=== PATIENT | female | born 1985 | race Caucasian/White ===

== ENCOUNTER 2018-12-31 11:30 | Inpatient (IN) | payer MEDICAID, SELFPAY ==
[2018-12-31 11:43] VITALS: BP 113/64; PULSE 66; RESP 16; TEMP 36.6; O2SAT 99; BMI 22.8
--- NOTE | 2018-12-31 11:54 | HP.PCM_ITS ---
Problem List (1) Heroin use Status: Acute (2) Acute opioid withdrawal Status: Chronic (3) Tobacco dependence Status: Chronic History of Present Illness Date of Admission: 12/31/18 Chief Complaint: Generalized body aches The patient is a 33 year old F history of IV heroin use presenting with generalized body aches. Patient also complains of abdominal cramps as well as restless legs. Last use was a day prior to coming in. Patient reports recent detox at [facility] 2 weeks prior to her admission to [facility]. Patient assessment on admission was consistent with acute opiate withdrawal admitted to regular nursing floor for medical stabilization Past Medical History Past Medical History (Chronic Problems): Chronic Problems Acute opioid withdrawal (Chronic) Tobacco dependence (Chronic) Allergies No Known Allergies Allergy (Verified 12/31/18 11:45) Home Medications: Ambulatory Orders Medication Instructions Recorded NK 12/31/18 - *Family History Maternal History Items: Heart Disease Review of Systems Constitutional: Reports: Weight Change. Denies: Anorexia, Chills, Fever HEENT: Reports: Nasal Congestion. Denies: Head Aches, Sinus Congestion Cardiovascular: Denies: Chest Pain, Orthopnea, Palpitations, Paroxysmal Noc. Dyspnea Respiratory: Denies: Cough, Shortness of breath at rest, Shortness of breath upon exertion, Sputum production Gastrointestinal: Reports: Abdominal Pain. Denies: Hematemesis, Hematochezia Genitourinary: Denies: Dysuria, Frequency, Hematuria, Urgency Musculoskeletal: Reports: Leg Pain, Muscle pain. Denies: Joint Pain, Joint T enderness Skin: Denies: Rash Neurological: Denies: Focal weakness, Numbness, Tingling Psychiatric: Reports: Anxiety. Denies: Homicidal Ideations, Suicidal Ideations Hematologic/ Lymphatic: Denies: Easy Bruising, Easy Bleeding VTE Information - Inpt Only VTE Present on Admission: No VTE Mechan Device Prophylaxis: None Reason prophylaxis not ordered:: Treatment Not Indicated Patient Problems: Active and Suspected Problems Heroin use (Acute) Objective: GENERAL: cooperative HEENT: Left periorbital bruising EYES; Anicteric, Normal Conjunctiva NECK; supple, normal thyroid, RESPIRATORY: Diminished to auscultation bilaterally, CARDIOVASCULAR: Regular S1 S2, GI: soft, non-tender, normoactive bowel sounds, : No Renal angle tenderness; EXTREMITIES: No edema, no clubbing, no cyanosis. MUSCULOSKELETAL: No Joint Tenderness; NEURO: Awake; no lateralizing signs. SKIN: No Rash PSYCH; Normal affect Assessment/Plan All Active Problems Heroin use (Acute) Patient is a 33-year-old lady with history of heroin dependence admitted with acute opiate withdrawal 1. Acute opiate withdrawal admitted to the regular nursing floor for medical stabilization using Subutex 2. Heroin dependence counseled on cessation 3. Tobacco dependence counseled on cessation, offered nicotine patch for tobacco cravings 4. DVT prophylaxis low risk did encourage early ambulation Code Visit Inpatient E&M: 22635 Init Hosp L2
[2018-12-31 12:05] VITALS: BMI 22.9
[2018-12-31 13:03] LABS: Color, Urine Yellow (Yellow); Glucose, Dipstick Normal (Normal); Ketone-Dipstick Negative (Negative); Leukocyte Esterase-Dipstick Negative /ul (Negative); Nitrite-Dipstick Negative (Negative); Occult Blood-Urine Negative /ul (Negative); Protein-Dipstick Negative (Negative); Specific Gravity, Urine 1.025 (1.002-1.030); Urine Bilirubin Dipstick Negative (Negative); Urine Clarity Clear (Clear); Urine Urobilinogen Normal (Normal)
[2018-12-31 13:08] LABS: Bacteria 1+ /hpf (None Seen); Calcium Oxalate Crystals Ur 2+ /hpf (<or=2+); Mucous, Urine 3+ /hpf (<or=2+); Red Blood Cells-Urine 0-5 SEEN /hpf (0-5); Squamous Epithelial Cells - UA 0-5 SEEN /hpf (5-10); White Blood Cells 0-5 SEEN /hpf (0-5)
[2018-12-31 13:09] LABS: Internal QC Validated? YES +Cl - CLEAR BKGD; Pregnancy, Urine Negative Negative
[2018-12-31 13:18] LABS: Amphetamine Urine VISTA POSITIVE (<1000 ng/mL); Barbiturate Urine VISTA NEGATIVE (< 200 ng/mL); Benzodiazepine Urine VISTA POSITIVE (< 200 ng/mL); Cocaine Urine VISTA POSITIVE (< 300 ng/mL); Ecstacy Urine VISTA NEGATIVE (< 500 ng/mL); Methadone Urine VISTA NEGATIVE (< 300 ng/mL); PCP Urine VISTA NEGATIVE (< 25 ng/mL); THC Urine VISTA NEGATIVE (< 50 ng/mL); Vista UDS pH Range 5
[2018-12-31] MEDS: chlordiazePOXIDE 25 MG Capsule PO ×3 (13:26→20:59)
[2018-12-31] MEDS: Methocarbamol 750 MG Tablet PO (13:26)
[2018-12-31] MEDS: cloNIDine HCl 0.1 MG Tablet PO (13:26)
[2018-12-31] MEDS: Dicyclomine 10 MG Capsule 20 MG PO ×2 (13:26→21:18)
[2018-12-31] MEDS: Buprenorphine HCl 2 MG TAB.SUBL SL ×2 (13:26→20:59)
[2018-12-31] MEDS: Ondansetron ODT 4 MG Tablet PO (13:26)
[2018-12-31 13:51] VITALS: BP 113/64; PULSE 66; RESP 18; TEMP 36.6
[2018-12-31 15:54] VITALS: BP 108/60; PULSE 72; RESP 18; TEMP 36.8
[2018-12-31 20:54] VITALS: BP 98/60; PULSE 71; RESP 14; TEMP 36.6; O2SAT 95
[2018-12-31] MEDS: traZODone 50 MG Tablet PO (21:00)
[2019-01-01] VITALS (7 sets, daily range): BP systolic 85–109; BP diastolic 40–66; PULSE 60–76; RESP 14–16; TEMP 36.5–37.4; O2SAT 97
[2019-01-01] MEDS: chlordiazePOXIDE 25 MG Capsule PO ×3 (00:59→08:07)
--- NOTE | 2019-01-01 01:03 | NURSING ---
explained to pt that lab had called stating she had refused blood draws earlier and inquired if pt would be willing to let them draw in am. pt states i mean i don't have a choice explained to pt that pt does have choice. pt verbalizes understanding that lab will be coming to draw in am if she is ok with it.
[2019-01-01] MEDS: Buprenorphine HCl 2 MG TAB.SUBL SL ×3 (05:03→20:59)
--- NOTE | 2019-01-01 07:31 | PN_ITS ---
Patient Problems: Active and Suspected Problems Heroin use (Acute) Subjective: She has seen complains of extreme anxiety also complains of abdominal cramps as well as leg pain. Objective: GENERAL: ill-looking HEENT: Left periorbital bruising EYES; Anicteric, Normal Conjunctiva NECK; supple, normal thyroid, RESPIRATORY: Diminished to auscultation bilaterally, CARDIOVASCULAR: Regular S1 S2, GI: soft, non-tender, normoactive bowel sounds, : No Renal angle tenderness; EXTREMITIES: No edema, no clubbing, no cyanosis. MUSCULOSKELETAL: No Joint Tenderness; NEURO: Awake; no lateralizing signs. SKIN: No Rash PSYCH; flat affect Vitals/I&O's: Vital Signs Temp Pulse Resp BP Pulse Ox 97.7 F L 62 14 100/63 95 01/01/19 05:06 01/01/19 05:06 01/01/19 05:06 01/01/19 05:06 12/31/18 20:54 Oxygen Delivery Method Room Air Weight: 62.5 kg Body Mass Index (BMI) 22.8 Intake and Output for Last 24 Hours 12/30/18 12/31/18 01/01/19 23:59 23:59 23:59 Intake Total 720 / 720 Balance 720 / 720 Laboratory Results 12/31/18 12:10: Urine Opiates Screen NEGATIVE, Urine Methadone Screen NEGATIVE, Ur Barbiturates Screen NEGATIVE, Ur Phencyclidine Scrn NEGATIVE, Ur Amphetamines Screen POSITIVE H, U Methamphetamin-MDMA NEGATIVE, U Benzodiazepines Scrn POSITIVE H, Urine Cocaine Screen POSITIVE H, U Cannabinoids Screen NEGATIVE, Ur Drug Screen Comment 12/31/18 12:10: Urine Color Yellow, Urine Clarity Clear, Urine pH 6.0, Ur Specific [place] 1.025, Urine Protein Negative, Urine Glucose (UA) Normal, Urine Ketones Negative, Urine Occult Blood Negative, Urine Nitrite Negative, Urine Bilirubin Negative, Urine Urobilinogen Normal, Ur Leukocyte Esterase Negative, Urine RBC 0-5 SEEN, Urine WBC 0-5 SEEN, Ur Squamous Epith Cells 0-5 SEEN, Calcium Oxalate Crystal 2+, Urine Bacteria 1+, Urine Mucus 3+, Urine Test Negative 12/31/18 16:02: WBC Cancelled, Corrected WBC Cancelled, RBC Cancelled, Hgb C ancelled, Hct Cancelled, MCV Cancelled, MCH Cancelled, MCHC Cancelled, RDW Cancelled, RDW Differential Cancelled, Plt Count Cancelled, MPV Cancelled, Immature Gran % (Auto) Cancelled, Neut % (Auto) Cancelled, Lymph % (Auto) Cancelled, [place] % (Auto) Cancelled, Eos % (Auto) Cancelled, Baso % (Auto) Cancelled, Absolute Neuts (auto) Cancelled, Absolute Lymphs (auto) Cancelled, Total Counted Cancelled, Neutrophils % (Manual) Cancelled, Band Neutrophils % Cancelled, Lymphocytes % (Manual) Cancelled, Monocytes % (Manual) Cancelled, Eosinophils % (Manual) Cancelled, Basophils % (Manual) Cancelled, Metamyelocytes % Cancelled, Myelocytes % Cancelled, Promyelocytes % Cancelled, Blast Cells % Cancelled, Plasma Cell % (Manual) Cancelled, Other Cells % Cancelled, Nucleated RBCs/100 WBC Cancelled, Differential Comment Cancelled, Diff Path Review Cancelled, Hypersegmented Neuts Cancelled, Atypical Lymphocytes Cancelled, Reactive Lymphocytes Cancelled, Smudge Cells Cancelled, Toxic Granulation Cancelled, Dohle Bodies Cancelled, Amaya Rods Cancelled, Platelet Estimate Cancelled, Plt Morphology Comment Cancelled, RBC Morphology Cancelled, Polychromasia Cancelled, Hypochromasia Cancelled, Poikilocytosis Cancelled, Basophilic Stippling Cancelled, Anisocytosis Cancelled, Microcytosis Cancelled, Macrocytosis Cancelled, Spherocytes Cancelled, Sickle Cells Cancelled, Target Cells Cancelled, Tear Drop Cells Cancelled, Ovalocytes Cancelled, Stomatocytes Cancelled, [place] Bodies Cancelled, [place] Cells Cancelled, Bite Cells Cancelled, Acanthocytes (Spur) Cancelled, Rouleaux Cancelled, Schistocytes Cancelled 12/31/18 16:02: Sodium Cancelled, Potassium Cancelled, Chloride Cancelled, Carbon Dioxide Cancelled, Anion Gap Cancelled, BUN Cancelled, Creatinine Cancelled, Estim Creat Clear Calc Cancelled, Est GFR (MDRD) Af Amer Cancelled, Est GFR (MDRD) Non-Af Cancelled, BUN/Creatinine Ratio Cancelled, Glucose Cancelled, Calcium Cancelled, Total Bilirubin Cancelled, AST Cancelled, ALT Cancelled, Alkaline Phosphatase Cancelled, Total Protein Cancelled, Albumin Cancelled, Globulin Cancelled, Albumin/Globulin Ratio Cancelled, Amylase Cancelled, Lipase Cancelled 12/31/18 16:02: Ethyl Alcohol 10.0 Current Medications Acetaminophen (Tylenol) 500 mg PO Q4H PRN PRN PRN Reason: Temp > 100.4 F Al Hydroxide/Mg Hydroxide (Mylanta Ii) 30 ml PO Q6H PRN PRN PRN Reason: dyspesia Bisacodyl (Dulcolax) 10 mg RECTAL DAILY PRN PRN Reason: Constipation Buprenorphine HCl (Buprenorphine Hcl) 4 mg SL Q8H ISAIAS; Taper Stop: 01/03/19 15:59 Last Admin: 01/01/19 05:03 Dose: 4 mg Chlordiazepoxide (Librium) 25 mg PO Q4H ISAIAS Stop: 01/01/19 08:01 Last Admin: 01/01/19 05:03 Dose: 25 mg Chlordiazepoxide (Librium) 25 mg PO Q6H PRN PRN PRN Reason: Moderate-Severe Anxiety Clonidine (Catapres) 0.1 mg PO Q2H PRN PRN PRN Reason: Hot/Cold Sweats or Anxiety Last Admin: 12/31/18 13:26 Dose: 0.1 mg Dicyclomine HCl (Bentyl) 20 mg PO Q6H PRN PRN PRN Reason: Abdomnial Discomfort Last Admin: 12/31/18 21:18 Dose: 20 mg Hydroxyzine HCl (Vistaril Vial) 50 mg IM Q6H PRN PRN PRN Reason: Breakthrough Anxiety Hydroxyzine Pamoate (Vistaril Pamoate Capsule) 50 mg PO Q6H PRN PRN PRN Reason: Mild Anxiety Ibuprofen (Motrin) 600 mg PO Q8H PRN PRN PRN Reason: Mild-Moderate Pain (1-5/10) Loperamide HCl (Imodium) 2 - 4 mg PO UD PRN PRN Reason: LOOSE STOOLS Methocarbamol (Methocarbamol) 750 mg PO Q6H PRN PRN PRN Reason: Muscle Aches Last Admin: 12/31/18 13:26 Dose: 750 mg Nicotine (Nicoderm Cq (Pbkc)) 21 mg TRANSDERM. DAILY [facility] Last Admin: 12/31/18 13:26 Dose: 21 mg Nutritional Formula (Lactose Free) (Ensure Enlive) 120 ml PO 4X/DAY [facility] Last Admin: 12/31/18 21:00 Dose: 120 ml Ondansetron HCl (Zofran Odt) 4 mg PO Q6H PRN PRN PRN Reason: NAUSEA Last Admin: 12/31/18 13:26 Dose: 4 mg Pramipexole Dihydrochloride (Mirapex) 0.25 mg PO Q12H PRN PRN PRN Reason: Restless Legs Senna (Senokot) 1 tablet PO QHS PRN PRN Reason: Constipation Trazodone HCl (Desyrel) 50 mg PO QHS ISAIAS Last Admin: 12/31/18 21:00 Dose: 50 mg Medical Necessity - Tobacco Use Smoking Status: Current every day smoker Tobacco Use: Cigarettes Assessment/Plan All Active Problems Heroin use (Acute) Patient is a 33-year-old lady with history of heroin dependence admitted with acute opiate withdrawal 1. Acute opiate withdrawal admitted to the regular nursing floor for medical stabilization using Subutex 2. Heroin dependence counseled on cessation 3. Tobacco dependence counseled on cessation, offered nicotine patch for tobacco cravings 4. Polysubstance abuse patient urine tox screen was positive for methamphetamines, cocaine benzos in addition to opiate, counseled on cessation 5. Anxiety disorder 6. DVT prophylaxis low risk did encourage early ambulation Code Visit Inpatient E&M: 47119 Subs Hosp L3
--- NOTE | 2019-01-01 08:45 | NEWVISION ---
Patient has D/C plan to attend [facility] for counseling and MAT program appointment at 4pm. Transportation to be provided by patient's sister Leann Pa. [phone].
--- NOTE | 2019-01-01 09:24 | NURSING ---
LOW BP REPORTED TO . NO NEW ORDERS RECEIVED.
[2019-01-01] MEDS: Methocarbamol 750 MG Tablet PO (09:39)
[2019-01-01] MEDS: Pramipexole Di-HCl 0.25 MG Tablet PO (18:08)
[2019-01-01] MEDS: traZODone 50 MG Tablet PO (20:59)
[2019-01-02 04:12] VITALS: BP 103/50; PULSE 68; RESP 16; TEMP 36.7; O2SAT 98
[2019-01-02] MEDS: Buprenorphine HCl 2 MG TAB.SUBL SL ×2 (04:16→16:36)
--- NOTE | 2019-01-02 07:22 | PCM.PN.HOSP ---
Patient Problems: Active and Suspected Problems Heroin use (Acute) Subjective: She has seen complains of feeling tired. Her anxiety is improving Objective: GENERAL: ill-looking HEENT: Left periorbital bruising EYES; Anicteric, Normal Conjunctiva NECK; supple, normal thyroid, RESPIRATORY: Diminished to auscultation bilaterally, CARDIOVASCULAR: Regular S1 S2, GI: soft, non-tender, normoactive bowel sounds, : No Renal angle tenderness; EXTREMITIES: No edema, no clubbing, no cyanosis. MUSCULOSKELETAL: No Joint Tenderness; NEURO: Awake; no lateralizing signs. SKIN: No Rash PSYCH; flat affect Vitals/I&O's: Vital Signs Temp Pulse Resp BP Pulse Ox 98.1 F 68 16 103/50 L 98 01/02/19 04:12 01/02/19 04:12 01/02/19 04:12 01/02/19 04:12 01/02/19 04:12 Oxygen Delivery Method Room Air Weight: 62.5 kg Body Mass Index (BMI) 22.8 Intake and Output for Last 24 Hours 12/31/18 01/01/19 01/02/19 23:59 23:59 23:59 Intake Total 1600 / 1600 690 / 690 Balance 1600 / 1600 690 / 690 Current Medications Acetaminophen (Tylenol) 500 mg PO Q4H PRN PRN PRN Reason: Temp > 100.4 F Al Hydroxide/Mg Hydroxide (Mylanta Ii) 30 ml PO Q6H PRN PRN PRN Reason: dyspesia Bisacodyl (Dulcolax) 10 mg RECTAL DAILY PRN PRN Reason: Constipation Buprenorphine HCl (Buprenorphine Hcl) 2 mg SL Q12H ISAIAS; Taper Stop: 01/03/19 15:59 Last Admin: 01/02/19 04:16 Dose: 2 mg Chlordiazepoxide (Librium) 25 mg PO Q6H PRN PRN PRN Reason: Moderate-Severe Anxiety Clonidine (Catapres) 0.1 mg PO Q2H PRN PRN PRN Reason: Hot/Cold Sweats or Anxiety Last Admin: 12/31/18 13:26 Dose: 0.1 mg Dicyclomine HCl (Bentyl) 20 mg PO Q6H PRN PRN PRN Reason: Abdomnial Discomfort Last Admin: 12/31/18 21:18 Dose: 20 mg Hydroxyzine HCl (Vistaril Vial) 50 mg IM Q6H PRN PRN PRN Reason: Breakthrough Anxiety Hydroxyzine Pamoate (Vistaril Pamoate Capsule) 50 mg PO Q6H PRN PRN PRN Reason: Mild Anxiety Ibuprofen (Motrin) 600 mg PO Q8H PRN PRN PRN Reason: Mild-Moderate Pain (1-5/10) Loperamide HCl (Imodium) 2 - 4 mg PO UD PRN PRN Reason: LOOSE STOOLS Methocarbamol (Methocarbamol) 750 mg PO Q6H PRN PRN PRN Reason: Muscle Aches Last Admin: 01/01/19 09:39 Dose: 750 mg Nicotine (Nicoderm Cq (Pbkc)) 21 mg TRANSDERM. DAILY [facility] Last Admin: 01/01/19 09:39 Dose: 21 mg Nutritional Formula (Lactose Free) (Ensure Enlive) 120 ml PO 4X/DAY [facility] Last Admin: 01/01/19 20:59 Dose: 120 ml Ondansetron HCl (Zofran Odt) 4 mg PO Q6H PRN PRN PRN Reason: NAUSEA Last Admin: 12/31/18 13:26 Dose: 4 mg Pramipexole Dihydrochloride (Mirapex) 0.25 mg PO Q12H PRN PRN PRN Reason: Restless Legs Last Admin: 01/01/19 18:08 Dose: 0.25 mg Senna (Senokot) 1 tablet PO QHS PRN PRN Reason: Constipation Trazodone HCl (Desyrel) 50 mg PO QHS [facility] Last Admin: 01/01/19 20:59 Dose: 50 mg Medical Necessity - Tobacco Use Smoking Status: Current every day smoker Tobacco Use: Cigarettes Assessment/Plan All Active Problems Heroin use (Acute) Patient is a 33-year-old lady with history of heroin dependence admitted with acute opiate withdrawal 1. Acute opiate withdrawal admitted to the regular nursing floor for medical stabilization using Subutex the patient has tolerated the protocol well so far 2. Heroin dependence counseled on cessation 3. Tobacco dependence counseled on cessation, offered nicotine patch for tobacco cravings 4. Polysubstance abuse patient urine tox screen was positive for methamphetamines, cocaine benzos in addition to opiate, counseled on cessation 5. Anxiety disorder 6. DVT prophylaxis low risk did encourage early ambulation Code Visit Inpatient E&M: 62460 Subs Hosp L2
--- NOTE | 2019-01-02 07:25 | PN_ITS ---
Patient Problems: Active and Suspected Problems Heroin use (Acute) Subjective: She has seen complains of feeling tired. Her anxiety is improving Objective: GENERAL: ill-looking HEENT: Left periorbital bruising EYES; Anicteric, Normal Conjunctiva NECK; supple, normal thyroid, RESPIRATORY: Diminished to auscultation bilaterally, CARDIOVASCULAR: Regular S1 S2, GI: soft, non-tender, normoactive bowel sounds, : No Renal angle tenderness; EXTREMITIES: No edema, no clubbing, no cyanosis. MUSCULOSKELETAL: No Joint Tenderness; NEURO: Awake; no lateralizing signs. SKIN: No Rash PSYCH; flat affect Vitals/I&O's: Vital Signs Temp Pulse Resp BP Pulse Ox 98.1 F 68 16 103/50 L 98 01/02/19 04:12 01/02/19 04:12 01/02/19 04:12 01/02/19 04:12 01/02/19 04:12 Oxygen Delivery Method Room Air Weight: 62.5 kg Body Mass Index (BMI) 22.8 Intake and Output for Last 24 Hours 12/31/18 01/01/19 01/02/19 23:59 23:59 23:59 Intake Total 1600 / 1600 690 / 690 Balance 1600 / 1600 690 / 690 Current Medications Acetaminophen (Tylenol) 500 mg PO Q4H PRN PRN PRN Reason: Temp > 100.4 F Al Hydroxide/Mg Hydroxide (Mylanta Ii) 30 ml PO Q6H PRN PRN PRN Reason: dyspesia Bisacodyl (Dulcolax) 10 mg RECTAL DAILY PRN PRN Reason: Constipation Buprenorphine HCl (Buprenorphine Hcl) 2 mg SL Q12H ISAIAS; Taper Stop: 01/03/19 15:59 Last Admin: 01/02/19 04:16 Dose: 2 mg Chlordiazepoxide (Librium) 25 mg PO Q6H PRN PRN PRN Reason: Moderate-Severe Anxiety Clonidine (Catapres) 0.1 mg PO Q2H PRN PRN PRN Reason: Hot/Cold Sweats or Anxiety Last Admin: 12/31/18 13:26 Dose: 0.1 mg Dicyclomine HCl (Bentyl) 20 mg PO Q6H PRN PRN PRN Reason: Abdomnial Discomfort Last Admin: 12/31/18 21:18 Dose: 20 mg Hydroxyzine HCl (Vistaril Vial) 50 mg IM Q6H PRN PRN PRN Reason: Breakthrough Anxiety Hydroxyzine Pamoate (Vistaril Pamoate Capsule) 50 mg PO Q6H PRN PRN PRN Reason: Mild Anxiety Ibuprofen (Motrin) 600 mg PO Q8H PRN PRN PRN Reason: Mild-Moderate Pain (1-5/10) Loperamide HCl (Imodium) 2 - 4 mg PO UD PRN PRN Reason: LOOSE STOOLS Methocarbamol (Methocarbamol) 750 mg PO Q6H PRN PRN PRN Reason: Muscle Aches Last Admin: 01/01/19 09:39 Dose: 750 mg Nicotine (Nicoderm Cq (Pbkc)) 21 mg TRANSDERM. DAILY [facility] Last Admin: 01/01/19 09:39 Dose: 21 mg Nutritional Formula (Lactose Free) (Ensure Enlive) 120 ml PO 4X/DAY [facility] Last Admin: 01/01/19 20:59 Dose: 120 ml Ondansetron HCl (Zofran Odt) 4 mg PO Q6H PRN PRN PRN Reason: NAUSEA Last Admin: 12/31/18 13:26 Dose: 4 mg Pramipexole Dihydrochloride (Mirapex) 0.25 mg PO Q12H PRN PRN PRN Reason: Restless Legs Last Admin: 01/01/19 18:08 Dose: 0.25 mg Senna (Senokot) 1 tablet PO QHS PRN PRN Reason: Constipation Trazodone HCl (Desyrel) 50 mg PO QHS [facility] Last Admin: 01/01/19 20:59 Dose: 50 mg Medical Necessity - Tobacco Use Smoking Status: Current every day smoker Tobacco Use: Cigarettes Assessment/Plan All Active Problems Heroin use (Acute) Patient is a 33-year-old lady with history of heroin dependence admitted with acute opiate withdrawal 1. Acute opiate withdrawal admitted to the regular nursing floor for medical stabilization using Subutex the patient has tolerated the protocol well so far 2. Heroin dependence counseled on cessation 3. Tobacco dependence counseled on cessation, offered nicotine patch for tobacco cravings 4. Polysubstance abuse patient urine tox screen was positive for methamphetamines, cocaine benzos in addition to opiate, counseled on cessation 5. Anxiety disorder 6. DVT prophylaxis low risk did encourage early ambulation Code Visit Inpatient E&M: 58918 Subs Hosp L2
[2019-01-02 10:06] VITALS: BP 103/61; PULSE 68; RESP 14; TEMP 36.6
[2019-01-02] MEDS: Pramipexole Di-HCl 0.25 MG Tablet PO (10:15)
[2019-01-02] MEDS: Methocarbamol 750 MG Tablet PO (10:15)
--- NOTE | 2019-01-02 12:51 | CHAPLAIN ---
Type of Pastoral Visit _x__ Initial Visit ___ Follow-up Visit ___ On-call Visit ___ General Patient Visit ___ Spiritual Assessment ___ Family Conference ___ Bereavement ___ Rapid Response ___ Code Blue ___ Other (describe below) Pastoral Care Referral From ___ Patient ___ Family ___ Nurse ___ Physician ___ Mechanical Technical Service Specialist ___ Rolling [employer] Operator Helper _x__ Other (describe below) Sacrament/Intervention ___ Active listening ___ Anointing ___ Christianity ___ Bereavement ___ Communion ___ Kristina exploration ___ ___ Life review ___ Prayer ___ Reconciliation ___ Sacrament of Sick ___ Supportive presence ___ Wedding _x__ Other (describe below) Pastoral Comments there was a referral placed for this patient; upon offer of support the pt declined it; no interventions
[2019-01-02 16:35] VITALS: BP 115/73; PULSE 72; RESP 14; TEMP 36.8
[2019-01-02 20:49] VITALS: BP 110/70; PULSE 74; RESP 16; TEMP 37
[2019-01-02] MEDS: traZODone 50 MG Tablet PO (21:02)
[2019-01-02] MEDS: hydrOXYzine PAM 25 MG Capsule 50 MG PO (21:02)
[2019-01-03 01:16] VITALS: BP 99/60; PULSE 70; RESP 16; TEMP 36.6
[2019-01-03] MEDS: Buprenorphine HCl 2 MG TAB.SUBL SL (04:06)
--- NOTE | 2019-01-03 07:57 | DCINST_ITS ---
- Discharge Diagnoses Current Active Problems: Current Active and Chronic Problems Heroin use (Acute) Acute opioid withdrawal (Chronic) Tobacco dependence (Chronic) You will use the following diet at home:: No restrictions Discharge Activity: Return to Normal Activity, May not drive while taking narcotic pain medications. Allergies/Adverse Reactions: Allergies No Known Allergies Allergy (Verified 12/31/18 11:45) Medications to take at Discharge NK 12/31/18 Primary Care Physician: Care Physician,No Primary [Primary Care Provider] - Please follow up with your Primary Care Physician in: in 5-7 days Test Results: Test results from this visit will be discussed in further detail at your follow- up appointment, if applicable. Proposed Discharge Date: 01/03/19
--- NOTE | 2019-01-03 07:57 | PCM.DC.SUM ---
Discharge Date and Diagnosis - Problem List Patient Problems: Active and Suspected Problems Heroin use (Acute) Date of Admission: 12/31/18 Date of Discharge: 01/03/19 - Primary Discharge Diagnosis Active and Suspected Problems Heroin use (Acute) - Secondary Discharge Diagnosis Chronic Problems Acute opioid withdrawal (Chronic) Tobacco dependence (Chronic) Hospital Course and Treatment Summary of Care Provided: Patient is a 33-year-old lady with history of heroin dependence admitted with acute opiate withdrawal 1. Acute opiate withdrawal admitted to the regular nursing floor for medical stabilization using Subutex the patient tolerated the protocol 2. Heroin dependence counseled on cessation 3. Tobacco dependence counseled on cessation, offered nicotine patch for tobacco cravings 4. Polysubstance abuse patient urine tox screen was positive for methamphetamines, cocaine benzos in addition to opiate, counseled on cessation 5. Anxiety disorder 6. DVT prophylaxis low risk did encourage early ambulation Patient Problems: Active and Suspected Problems Heroin use (Acute) Objective: HEENT: Left periorbital bruising EYES; Anicteric, Normal Conjunctiva NECK; supple, normal thyroid, RESPIRATORY: Diminished to auscultation bilaterally, CARDIOVASCULAR: Regular S1 S2, GI: soft, non-tender, normoactive bowel sounds, : No Renal angle tenderness; EXTREMITIES: No edema, no clubbing, no cyanosis. MUSCULOSKELETAL: No Joint Tenderness; NEURO: Awake; no lateralizing signs. SKIN: No Rash PSYCH; flat affect - Physical Exam Vital Signs Temp Pulse Resp BP Pulse Ox 97.8 F 70 16 99/60 98 01/03/19 01:16 01/03/19 01:16 01/03/19 01:16 01/03/19 01:16 01/02/19 04:12 Oxygen Delivery Method Room Air Weight: 62.5 kg Body Mass Index (BMI) 22.8 Intake and Output for Last 24 Hours 01/01/19 01/02/19 01/03/19 23:59 23:59 23:59 Intake Total 1600 / 1600 990 / 990 480 / 480 Balance 1600 / 1600 990 / 990 480 / 480 Discharge Diet: No Restrictions Discharge Activity: Return to Normal Activity, May not drive while taking narcotic pain medications. Home Medications: Medications to take at Discharge NK 12/31/18 Primary Care Physician: Care Physician,No Primary [Primary Care Provider] - Please follow up with your Primary Care Physician in: in 5-7 days Disposition: Home Minutes spent on discharge:: 32 Patient Condition:: Stable Medical Necessity - Tobacco Use Smoking Status: Current every day smoker Tobacco Use: Cigarettes Meaningful Use Info Meaningful Use Diagnoses (Choose all that apply): None applicable Code Visit Inpatient E&M: 04493 Disch Hosp
[2019-01-03 08:16] VITALS: BP 97/58; PULSE 82; RESP 16; TEMP 36.6
== END 2019-01-03 09:06 | disposition home or self-care (01) | DRG 773 ==
PROVIDERS: Admitting Provider Internal Medicine; Referring Provider Internal Medicine; Visit Provider Internal Medicine
DX: F11.23 Opioid dependence with withdrawal (principal); F17.210 Nicotine dependence, cigarettes, uncomplicated; F14.10 Cocaine abuse, uncomplicated; F15.10 Other stimulant abuse, uncomplicated; F41.9 Anxiety disorder, unspecified
CPT/HCPCS: 80307; 80320; 81001; 81025; 97802; G0480